=== PATIENT | female | born 1995 | race Caucasian/White ===

== ENCOUNTER 2021-07-01 06:02 | Emergency (ER) | payer OTHER, SELFPAY ==
--- NOTE | ~2021-07-01 | CT_ITS ---
EXAMINATION: CT abdomen pelvis w con DATE: 07/01/2021 08:16 INDICATION: Abdominal pain TECHNIQUE: Computed tomography (CT) of the abdomen and pelvis was performed with 100 mL Omnipaque-350 intravenous contrast. Automated exposure control and iterative reconstruction technique were employe d. The dose-length product was 1565.51 mGy-cm. COMPARISON: None FINDINGS: Lung bases are clear. Heart size is normal. No pericardial or pleural effusion. Cholecystectomy clips at the gallbladder fossa. Nonspecific mild periportal edema. Spleen, pancreas, bilateral adrenal gla nds and kidneys are normal. Bowels including the appendix are normal. Bladder, anteverted uterus and bilateral adnexa are unremarkable. Minimal likely physiologic free fluid in the pelvis. No abscess or free intraperitoneal gas. No pathologically enlarged abdominal or pelvic lymphadenopathy. IMPRESSION: 1. Nonspecific mild periportal edema. There is wide differential including congestive heart failure, acute hepatitis, but hepatic trauma, cholangitis, acute pyelonephritis or aggressive fluid resuscitat ion. No other acute intra-abdominal/pelvic process. Reviewed, dictated and finalized at location A. IMPRESSION: 1. Nonspecific mild periportal edema. There is wide differential including dandy estive heart failure, acute hepatitis, but hepatic trauma, cholangitis, acute p yelonephritis or aggressive fluid resuscitation. No other acute intra-abdominal /pelvic process.
[2021-07-01 06:18] VITALS: BP 141/105; PULSE 88; RESP 24; TEMP 37.3; O2SAT 98
[2021-07-01 06:33] LABS: Basophils Absolute Auto 0.1 K/mm3 (0.0-0.1); Basophils Percent Auto 0.3 % (0.2-1.2); Eosinophils Percent Auto 0.3 % (0-4.4); Hematocrit 46.5 % (37.0-47.0); Immature Granulocyte Absolute 0.05 K/mm3 (0.00-0.031); Immature Granulocyte Percent A 0.3 % (0-0.5); Lymphocytes Absolute Auto 1.29 K/mm3 (0.9-3.2); Lymphocytes Percent Auto 8.5 % (18.3-44.2); Mean Corpuscular HGB Conc 32.3 g/dl (32-36); Mean Corpuscular Hemoglobin 27.5 pg (26-34); Mean Corpuscular Volume 85.3 fl (80-100); Mean Platelet Volume 10.1 fl (7.4-10.4); Monocytes Absolute Auto 0.7 K/mm3 (0.1-0.6); Monocytes Percent Auto 4.3 % (2.6-8.5); Neutrophils Percent Auto 86.3 % (45.5-73.1); Platelet Count Result 303 k/mm3 (150-375); Red Blood Count 5.45 M/mm3 (4.2-5.4); Red Cell Distribution Width 14.6 % (11.5-14.5); White Blood Count 15.1 K/mm3 (4.5-10.0)
[2021-07-01 06:42] LABS: Alanine Aminotransferase 36 U/L (4-35); Albumin Level 4.3 g/dL (3.5-5.1); Alkaline Phosphatase 145 U/L (38-126); Anion Gap 10 mmol/L (8-16); Aspartate Amino Transferase 96 U/L (14-36); Bilirubin,Total 1.1 mg/dL (0.2-1.3); Blood Urea Nitrogen 20 mg/dL (7-17); Calcium 9.5 mg/dL (8.4-10.2); Carbon Dioxide 24 mmol/L (22-30); Chloride 102 mmol/L (98-107); Estimated CRCL calculation 132 ml/min; Estimated Glomerular Filt Rate > 60; Glucose 102 mg/dL (65-110); Lipase 127 U/L (23-300); Potassium 3.6 mmol/L (3.4-5.0); Sodium 136 mmol/L (137-145)
--- NOTE | 2021-07-01 07:14 | ED.GENADULT ---
HPI - General Adult General Chief complaint: Abdominal Pain Stated complaint: ABD pain, back pain Time Seen by Provider: 07/01/21 07:01 Source: RN notes reviewed History of Present Illness HPI narrative: Patient presents to emergency department from home for abdominal pain. Patient states symptoms began approximately 2 hours ago. Patient states she had pain in the bilateral lower abdomen that radiated around to the back and described as sharp and stabbing states has been associated with nausea and vomiting as well as several episodes of loose stool patient states she did not take anything for the pain at home she denies any fevers or chills, chest pain shortness of breath or any other symptoms Related Data Home Medications Medication Instructions Recorded Confirmed No Home Medications 07/01/21 07/01/21 Allergies Allergy/AdvReac Type Severity Reaction Status Date / Time Penicillins Allergy Swelling Verified 07/01/21 06:20 Review of Systems Review of Systems: Gen.: Denies fevers or chills ENT: Denies congestion Respiratory: Denies shortness of breath or cough CV: Denies chest pain or palpitations GI: See HPI denies burning, urgency, frequency or hematuria Musculoskeletal: Denies back pain or muscle pain Neuro: Denies numbness, tingling, weakness or focal weakness Skin: Denies rash Except as documented, all other systems reviewed and negative [facility] Past Medical History Medical History (Updated 07/01/21 @ 08:36 by Miguel Angel Blake DO) Patient denies significant medical history Surgical History Surgical History (Updated 07/01/21 @ 07:15 by Miguel Angel Blake DO) Hx of cholecystectomy Social History Social History (Updated 07/01/21 @ 07:16 by Miguel Angel Blake DO) Smoking status: Never smoker Exam Narrative: APPEARANCE: Moderate distress from pain nontoxic, resting in bed HEENT: Normocephalic, atraumatic, OMM RESPIRATORY: No respiratory distress, clear to auscultation bilaterally with no rhonchi wheezing or rales CARDIOVASCULAR: RRR s murmur ABDOMINAL: Soft nondistended diffusely tender to palpation no rebound or guarding the bilateral flanks are tender to palpation MUSCULOSKELETAl: Moves all extremities. No clubbing, cyanosis or edema. NEURO: Awake and alert. Following commands, speech normal, no focal deficits SKIN:: Warm, dry. Normal Color PSYCHIATRIC: Normal affect/mood Course Course Emergency Course: Patient is from out of town and was visiting states that her ride is leaving at this time and she must leave. The patient patient has chosen to refuse further care. Risks of an incomplete evaluation and treatment were discussed with the patient including potential for sepsis, or permanent disability were discussed with the patient seems to understand these risks but still desires to refuse further care. Patient left prior to her CT scan being read. Patient recommended to follow up with her primary care physician in the next possible interval, specifically they?re told they can return to the ED at any time to resume care. AMA paperwork was signed and I was going give the patient paperwork for discharge instructions but patient left prior to this Vital Signs Vital signs: Vital Signs Temperature 99.1 F 07/01/21 06:18 Pulse Rate 88 07/01/21 06:18 Respiratory Rate 24 H 07/01/21 06:18 Blood Pressure 141/105 H 07/01/21 06:18 Pulse Oximetry 98 07/01/21 06:18 Temperature 99.1 F 07/01/21 06:18 Pulse Rate 88 07/01/21 06:18 Respiratory Rate 24 H 07/01/21 06:18 Blood Pressure 141/105 H 07/01/21 06:18 Pulse Oximetry 98 07/01/21 06:18 Medical Decision Making MDM Narrative Medical decision making narrative: Patient CT scan did come back to the patient and left pain was acute on onset patient did receive IV fluids in the ED liver enzymes are minimally elevated but patient with acute onsets I doubt hepatitis UA showed no signs of acute infection patient did receive
[2021-07-01] MEDS: ONDANSETRON INJ 4 MG/2 ML VIAL IV PUSH (07:16)
[2021-07-01] MEDS: SODIUM CHLORIDE 0.9% IV 1,000 ML 999 ML IV CONT (07:16)
[2021-07-01] MEDS: MORPHINE SULFATE (*CRX) 4 MG/ML INJ IV PUSH (07:18)
[2021-07-01 08:19] LABS: Add Urine Microscopic? YES; Appearance Urine Clear (Clear); Bilirubin Urine Negative (Negative); Blood Urine Negative (Negative); Color Urine Yellow (Yellow); Glucose Urine UA Negative (Negative); Ketones Urine Negative (Negative); Leukocyte Esterase Ur Trace LEU/UL (Negative); Mucus Urine Rare /lpf; Nitrate Urine Negative (Negative); Protein Urine Negative (Negative); RBC Urine 0-2 /hpf (0-2); Specific Grav Ur 1.021 (1.001-1.035); Squamous Epithelial Cell Urine Rare /hpf (Few); Urobilinogen Urine Negative mg/dL (<2.0); WBC Urine 0-3 /hpf
[2021-07-01 08:30] VITALS: BP 113/60; PULSE 80; RESP 20; O2SAT 99
== END 2021-07-01 08:30 | disposition left against medical advice (07) ==
PROVIDERS: Emergency Medicine; Emergency Provider Emergency Medicine
DX: R10.32 Left lower quadrant pain (principal); R10.31 Right lower quadrant pain
CPT/HCPCS: 36415; 74177; 80053; 81001; 81025; 83690; 85025; 96361; 96374; 96375; 99284; J2270; J2405; J7030; Q9967